=== PATIENT | female | born 1970 | race Caucasian/White ===

== ENCOUNTER 2024-05-04 08:25 | Day surgery (SDC) | payer MEDICAID, SELFPAY ==
[2024-05-03 13:56] VITALS: BMI 25.0
[2024-05-04] VITALS (8 sets, daily range): BP systolic 113–150; BP diastolic 73–101; PULSE 62–80; RESP 13–20; TEMP 36.3–36.7; O2SAT 95–100; BMI 25.1
[2024-05-04] MEDS: DiphenhydrAMINE INJ 50 MG/ML VIAL 25 MG IV (10:11)
[2024-05-04] MEDS: MIDAZOLAM INJ 1 MG/ML VIAL 2 ML (ASD USE ONLY) 2 MG IV (10:19)
[2024-05-04] MEDS: fentaNYL CIT INJ 50 mCg/ML AMP 2ML (ASD USE ONLY) IV (10:19)
--- NOTE | 2024-05-04 12:52 | SUR.PHASEII ---
1033: Pt received for recovery. Report from Marielos N. Pt groggy, but awake. Resp even, unlabored. VS stable. Denies pain. 1110: Pt more awake, alert. VS stable. Denies pain. Sitting up tolerating po fluids with no difficulty swallowing and no n/v. 1125: Pt fully awake, oriented x3. Pt assisted to restroom. Ambulation steady. Pt and stated understanding of discharge instructions. Pt discharged from [facility] in stable condition.
== END 2024-05-04 11:25 | disposition home or self-care (01) ==
PROVIDERS: PCP Nurse Practitioner Family; Referring Provider Surgery; Visit Provider Surgery
PROC: 0DBE8ZX Excision of Large Intestine, Via Natural or Artificial Opening Endoscopic, Diagnostic (ICD-10-PCS; CPT 45380; principal; 2024-05-04 10:45)
DX: Z12.11 Encounter for screening for malignant neoplasm of colon (principal); Z80.0 Family history of malignant neoplasm of digestive organs; K57.30 Diverticulosis of large intestine without perforation or abscess without bleeding
CPT/HCPCS: 45378; A4217; J1200; J2250; J3010

== ENCOUNTER 2024-05-10 14:40 | Outpatient (AMB) | payer MEDICAID, SELFPAY ==
[2024-05-10 14:57] VITALS: BP 110/75; PULSE 68; RESP 19; TEMP 36.4; O2SAT 96; BMI 25.2
--- NOTE | 2024-05-10 14:57 | GSCOFFNT_ITS ---
Vital Signs - [facility] 05/10/24 14:57 Height 1.65 m Height Method Stated Weight 68.719 kg Weight Measurement Method Standing Scale BMI 25.2 BP 110/75 Blood Pressure Source Automatic Cuff Blood Pressure Location Left Upper Arm Position Sitting Respiration 19 Pulse 68 Pulse Source Monitor Temp 97.6 F Temp Source Temporal Artery Scan Pulse Oximetry (%) 96 Oxygen Delivery Method Room Air Med/Allergies Allergies & Medications Allergies No Known Allergies Allergy (Verified 05/10/24 14:58) Medication Reconciliation No Known Home Medications 07/21/23 [History Confirmed 05/10/24] MA Intake Visit Data Collection New Patient or Established: Established Patient (seen at [facility] within 3 years) Seen by Clinical Staff ONLY (RN/MA): No Reason for Visit:: COLONOSCOPY F/U Pain Present Currently: No PCP or OBGYN visit in last 3 months: Yes Hx Now: No Do You Feel Safe at Home: Yes Authorities Contacted: N/A Smoking Status Smoking Status: Never smoker Immunization / Flu Flu Vaccine in the Last 12 Months: No Flu Vaccine Exclusion Criteria: No Exclusion Criteria Past Medical History Past Medical History NEUROLOGIC: Positive Neurological Disorders and Migraine; Negative Seizures CARDIAC: Negative Cardiac Disorders or Congestive Heart Failure RESPIRATORY: Negative Chronic Obstructive Pulmonary Disease (COPD) or Asthma GASTROINTESTINAL: Positive Gastrointestinal Disorders and Gastroesophageal Reflux Disease GENITOURINARY: Positive Genitourinary Disorders and Kidney Stones (X 2EWSL); Negative Renal Disease REPRODUCTIVE: Positive Previous Pregnancies (X2) ENDOCRINE: Negative Endocrine Disorders, Diabetes Mellitus Type 1, Diabetes Mellitus Type 2 or Hypothyroidism HEMATOLOGIC: Negative Blood Disorders, Anemia or Sickle Cell Disease PSYCHO/SOCIAL: Positive Depression and Anxiety OTHER HISTORY: Positive Falls, Chicken Pox and Measles; Negative Hospitalization, Autoimmune Disease, Down Syndrome, Developmental Delay, Shingles, Blood Transfusions, Anesthesia Reactions or Organ Transplant Family History FAMILY HISTORY: Positive Family Psychiatric Problems, Family Cardiac Disorders, Family Gastrointestinal Problems, Family Cancer and Family Surgery; Negative Family Respiratory Disorders or Family Anesthesia Reaction Surgical History SURGICAL: Negative Organ Transplant Social History SMOKING STATUS: Smoking status: Never smoker ALCOHOL: Alcohol Intake: Current ALCOHOL FREQUENCY: Alcohol Intake Frequency: holidays/special occasions only HOUSING: Housing: House HPI HPI Narrative 53F s/p screening colonoscopy 05/04/24 here for planned follow up. Pt reports feeling well overall with no complaints ROS Review of Systems Systems Reviewed: All systems reviewed, normal except as documented Objective/Exam General General Appearance: alert, cooperative and well groomed Resp Respiratory exam: Absent respiratory distress Results Colonoscopy report reviewed: diverticulosis Assessment & Plan Diagnosis / Problem List (1) Encounter to discuss colonoscopy results: Status: Acute Assessment & Plan: 53F s/p screening colonoscopy 05/04 with findings of diverticulosis. Given family history of colon CA in her father I recommended surveillance every 5 years. Pt expressed understanding and is agreeable Office Procedures GNS Level of Care Nursing/Assessment Patient Status: Established Patient Nursing Assessment/Reassesment: Medication Reconciliation, Update PMH in EMR and Vital Signs Coordination of Care: Complex Care and Chronic Disease 1-5, Consent,records obtained, informed consent, Education Simp Pt/Fam, Results/Orders obtained and Staff clarify orders Established Patient Charge Established Patient Point Assignment: 90 Established Patient Point Charge: EP Level 3 (80-115) Patient Portal Questionaires Social History Living Situation History Housing: House Tobacco History Smoking Status: Never smoker Alcohol History Alcohol Intake: Current Alcohol Intake Frequency: holidays/special occasions only Domestic Abuse History Do You Feel Safe at Home: Yes Review of Systems Report any current symptoms Only answer those that you have currently: Past Medical History Past Medical History Have you ever been diagnosed with any of the following: Neurological Problems Seizures: No Migraine: Yes Cardiology Problems Congestive Heart Failure: No Respiratory Problems Chronic Obstructive Pulmonary Disease (COPD): No Asthma: No Stomache/Intestinal Problems Gastroesophageal Reflux Disease: Yes Genital/Urinary Problems Renal Disease: No Kidney Stones: Yes (X 2EWSL) Reproductive Problems Previous Pregnancies: Yes (X2) Endocrine Problems Diabetes Mellitus Type 1: No Diabetes Mellitus Type 2: No Hypothyroidism: No Blood Problems Anemia: No Sickle Cell Disease: No Psychologic Problems Depression: Yes Anxiety: Yes Other Problems Hospitalization: No Autoimmune Disease: No Down Syndrome: No Developmental Delay: No Shingles: No Falls: Yes Blood Transfusions: No Anesthesia Reactions: No Organ Transplant: No Chicken Pox: Yes Measles: Yes
== END 2024-05-10 15:09 | disposition home or self-care (01) ==
LOC: HODSRG 14:40
PROVIDERS: PCP Nurse Practitioner Family; Referring Provider Nurse Practitioner Family; Supervising Provider Surgery; Visit Provider Surgery
DX: Z71.2 Person consulting for explanation of examination or test findings (principal); K57.90 Diverticulosis of intestine, part unspecified, without perforation or abscess without bleeding; Z80.0 Family history of malignant neoplasm of digestive organs
CPT/HCPCS: 99213; G0463

== ENCOUNTER → 2025-02-08 | Outpatient (CLI) | payer MEDICAID, SELFPAY ==
--- NOTE | 2025-02-08 14:03 | XR_ITS ---
Examination: CT abdomen without intravenous contrast. Coronal 2-D reconstructions. Sagittal 2-D reconstructions. Date and time of exam: February 08, 2025, 1411 hours, comparison February 01, 2018 INDICATIONS: Hematuria and flank pain 1 month, history multiple left renal calculi moderate left hydronephrosis secondary to ureteral calculi in 2018 CT examination CTDI: vol (mGy): 6.33 DLP: (mGycm): 211 Technique: Axial images of the abdomen have been obtained, 3 mm slice thickness, without intravenous contrast 2-D sagittal coronal reconstructions Low dose protocols were performed. One or more of the following dose reduction techniques were used; automated exposure control, adjustment of the mA and/or KV according to patient size, use of iterative reconstruction technique. Findings: No focal liver or splenic lesions No gallstones No pancreatic mass. Aorta normal size 15 mm indeterminate right adrenal nodule Moderate renal scar formation Multiple left renal calculi, the largest 10 mm No current ureteral calculi Normal appendix No bowel obstruction The osseous structures are intact IMPRESSION: 15 mm indeterminate right adrenal nodule, recommend MRI abdomen adrenal glands follow-up pre and postcontrast Multiple left renal calculi, moderate left renal scar formation, no hydronephrosis or ureteral calculi
== END | disposition home or self-care (01) ==
PROVIDERS: Referring Provider Nurse Practitioner Family; Visit Provider Nurse Practitioner Family
DX: N20.0 Calculus of kidney (principal); N28.89 Other specified disorders of kidney and ureter
CPT/HCPCS: 74150